=== PATIENT | female | born 1980 | race Caucasian/White ===

== ENCOUNTER 2018-02-05 18:50 | Emergency (ER) | payer BC ==
[2018-02-05 19:17] VITALS: RESP 18
--- NOTE | 2018-02-05 20:14 | ED ---
Abdominal Pain HPI - General Chief Complaint: Abdominal Pain Stated Complaint: Abd Pain Time Seen by Provider: 02/05/18 19:57 Source: patient, RN notes reviewed Mode of arrival: ambulatory Limitations: no limitations - History of Present Illness Initial Comments: This is a 37-year-old female who presents to the emergency department with chief complaint of abdominal pain. Patient states that she started her period earlier today. She states that when she got back to her hotel room she changed a tampon and it was completely soaked. She states that she then developed sudden onset of right lower pelvic pain. She describes it as intense, feeling like contractions. She states that it was so bad that she was having difficulty walking. She states that she went to [employer] and bought Pamprin which seemed to relieve the pain 15 minutes after taking it. Patient denies any significant past medical history. She does state that she has a history of 3 sections and tubal ligation. Denies any recent illnesses or infections. Denies fevers or chills, chest pain or shortness of breath. She does admit to nausea but denies vomiting. Denies constipation or diarrhea, dysuria or hematuria. At this time, patient states that the pain is very minimal and she is no longer feeling nauseous. - Related Data Allergies Allergy/AdvReac Type Severity Reaction Status Date / Time codeine Allergy Unknown Verified 02/05/18 19:16 Childhood Penicillins Allergy Itching Verified 02/05/18 19:16 Review of Systems ROS Statement: Those systems with pertinent positive or pertinent negative responses have been documented in the HPI. ROS Other: All systems not noted in ROS Statement are negative. Past Medical History Past Medical History: No Reported History History of Any Multi-Drug Resistant Organisms: MRSA Date of last positivie culture/infection: 2004 MDRO Source:: right hand Past Surgical History: Cholecystectomy, Tonsillectomy Additional Past Surgical History / Comment(s): 3 c/s, cyst in finger, bone graft , cryo Past Psychological History: No Psychological Hx Reported Smoking Status: Never smoker Past Alcohol Use History: Rare Past Drug Use History: None Reported General Exam - General Exam Comments Initial Comments: General: Awake and alert, well-developed; in no apparent distress. HEENT: Head atraumatic, normocephalic. Pupils are equal, round and reactive to light. Extraocular movements intact. Oropharynx moist without erythema or exudate. Neck: Supple. Normal ROM. Cardiovascular: Regular rate and rhythm. No murmurs, rubs or gallops. Chest symmetrical. Respiratory: Lungs clear to auscultation bilaterally. No wheezes, rales or rhonchi. Normal respiratory effort with no use of accessory muscles. Abdomen: Soft, non-tender, non-distended. No rigidity, rebound or guarding. Normal bowel sounds in all 4 quadrants. Musculoskeletal: Normal ROM, no tenderness bilateral upper and lower extremities. Ambulating normally. Skin: [place], warm and dry without rashes or lesions. Neurological: Alert and oriented x3. CN II-XII grossly intact. Speech is fluent and answers are appropriate. No focal neuro deficits. Psychiatric: Normal mood and affect. No overt signs of depression or anxiety noted. Limitations: no limitations Course Vital Signs 02/05/18 19:13 Temperature 98 F Pulse Rate 65 Respiratory 18 Rate Blood Pressure 146/98 O2 Sat by Pulse 100 Oximetry Medical Decision Making - Medical Decision Making This is a 37-year-old female who presented to the emergency department with chief complaint of sudden onset of low abdominal cramping. Patient describes the pain as feeling like contractions. While in the emergency department, patient states that the pain is minimal. She states that she started her period today and that it was quite heavy. A pelvic ultrasound was obtained which revealed normal follicular changes of the ovaries, mild adnexal and cul-de -sac free fluid which is probably physiologic and incidental cervical nabothian cysts. UA was unremarkable and urine hCG is negative. Patient has denied any abdominal pain since being in the emergency department. Abdomen is soft and non -tender. Vital signs are stable. Return parameters were discussed. Patient is in no acute distress and will be discharged home at this time. Recommended following up with a primary care provider. Patient is in agreement with plan and voices understanding. All questions answered. - Lab Data Lab Results 02/05/18 02/05/18 Range/Units 21:42 21:42 Urine Color Yellow Urine Appearance Clear (Clear) Urine pH 5.0 (5.0-8.0) Ur Specific [place] 1.016 (1.001-1.035) Urine Protein Negative (Negative) Urine Glucose (UA) Negative (Negative) Urine Ketones Negative (Negative) Urine Blood Moderate (Negative) Urine Nitrite Negative (Negative) Urine Bilirubin Negative (Negative) Urine Urobilinogen <2.0 (<2.0) mg/dL Ur Leukocyte Esterase Negative (Negative) Urine RBC 5 (0-5) /hpf Urine WBC 1 (0-5) /hpf Ur Squamous Epith Cells <1 (0-4) /hpf Hyaline Casts 1 (0-2) /lpf Urine Mucus Rare H (None) /hpf Urine HCG, Qual Not Detected (Not Detectd) - Radiology Data Radiology results: report reviewed, image reviewed Ultrasound of pelvis impression: 1. Normal follicular change of the ovaries without sonographic evidence of ovarian torsion. 2. Trace right adnexal free fluid in mild to moderate cul-de-sac free fluid probably physiologic. 3. Incidental prominent cervical nabothian cysts measuring up to 1.6 cm Disposition Clinical Impression: Abdominal pain Disposition: HOME SELF-CARE Condition: Good Instructions: Abdominal Pain (ED) Additional Instructions: Please follow up with primary care provider within 1-2 days. Return to emergency department if symptoms should worsen or any concerns arise. Is patient prescribed a controlled substance at d/c from ED?: No Referrals: Jesus Weaver MD [Primary Care Provider] - 1-2 days Time of Disposition: 22:05
--- NOTE | 2018-02-05 21:21 | US ---
EXAMINATION TYPE: US transvaginal plus Dopplers DATE OF EXAM: 02/05/2018 COMPARISON: NONE CLINICAL HISTORY: 37-year-old female right pelvic pain. RLQ pain today. Cramping for 1 week. History of 3 c-sections. Tubal ligation TECHNIQUE: Transvaginal (TV). Color Doppler and spectral waveform analysis of the ovarian arteries and veins. Date of LMP: 02/05/18 FINDINGS: EXAM MEASUREMENTS: Uterus: 8.3 x 5.5 x 6.5 cm Endometrial Stripe: 1.2 cm Right Ovary: 3.7 x 1.4 x 1.4 cm for a volume of 3.6 mL. Left Ovary: 3.8 x 2.0 x 2.1 cm for a volume of 8.1 mL. 1. Uterus: Retroverted. Nabothian cysts - largest = 1.6cm 2. Endometrium: appears wnl and thickness should correspond to the late secretory phase of the menst rual cycle. 3. Right Ovary: follicles noted. Satisfactory arterial and venous flow is demonstrated. 4. Left Ovary: follicles noted. Satisfactory arterial and venous flow is demonstrated. 5. Bilateral Adnexa: small amount of free fluid right adnexa 6. Posterior cul-de-sac: Mild to moderate free fluid IMPRESSION: 1. Normal follicular change of the ovaries without sonographic evidence of ovarian torsion. 2. Trace right adnexal free fluid and mild to moderate cul-de-sac free fluid probably physiologic. 3. Incidental prominent cervical nabothian cysts measuring up to 1.6 cm.
[2018-02-05 21:54] LABS: Hyaline Casts,Urine 1 /lpf (0-2); Mucus,Urine Rare /hpf; RBC,Urine 5 /hpf (0-5); Squamous Epithelial Cell,Urine <1 /hpf (0-4); WBC,Urine 1 /hpf (0-5)
[2018-02-05 21:56] LABS: Appearance,Urine Clear (Clear); Color,Urine Yellow; Glucose,Urine (UA) Negative (Negative); Protein,Urine Negative (Negative); Specific Gravity,Urine 1.016 (1.001-1.035)
[2018-02-05 21:57] LABS: Bilirubin,Urine Negative (Negative); Blood,Urine Moderate (Negative); Ketones,Urine Negative (Negative); Leukocyte Esterase,Urine Negative (Negative); Nitrite,Urine Negative (Negative); Urobilinogen,Urine <2.0 mg/dL (<2.0)
[2018-02-05 22:37] VITALS: BP 127/73; PULSE 78; TEMP 98.3
== END 2018-02-05 22:37 | disposition home or self-care (01) ==
LOC: EC 18:50
DX: R10.2 Pelvic and perineal pain (principal); N88.8 Other specified noninflammatory disorders of cervix uteri; R26.2 Difficulty in walking, not elsewhere classified; Z88.0 Allergy status to penicillin; Z88.5 Allergy status to narcotic agent; Z86.14 Personal history of Methicillin resistant Staphylococcus aureus infection; Z90.49 Acquired absence of other specified parts of digestive tract; Z98.51 Tubal ligation status
CPT/HCPCS: 76830; 81001; 81025; 93975; 99284

== ENCOUNTER → 2023-04-18 | Outpatient (CLI) | payer BC ==
[2023-04-18 15:27] LABS: C Reactive Protein <0.30 mg/dL (0.00-0.80); Rheumatoid Factor, Qnt <15 IU/mL (0-15)
[2023-04-18 20:33] LABS: DNA Double-Stranded Negative (Negative)
[2023-04-19 14:12] LABS: APTT 43 Sec(s) (<43); Dilute Russell Viper Venom 36 Sec(s) (<44)
== END | disposition home or self-care (01) ==
LOC: LABWHC1 10:47
PROVIDERS: ATTEND Physical Medicine & Rehabilitation Pain Medicine
DX: M12.9 Arthropathy, unspecified (principal)
CPT/HCPCS: 36415; 85613; 85652; 85730; 86038; 86140; 86225; 86431